=== PATIENT | male | born 2000 | race African-American/Black ===

== ENCOUNTER 2022-01-10 20:05 | Emergency (ER) | payer OTHER ==
[~2022-01-10] VITALS: Ht 175.3 cm; Wt 79.4 kg
[~2022-01-10 20:05] MED LIST: ALBU17AE3; FLUT16SP22 NS; HYDR-3583 PO; HYDR-707 PO; IBP800T PO; MONT5TAB11 PO; PRM25T PO
[2022-01-10 20:20] VITALS: BP 136/79
--- NOTE | 2022-01-10 20:59 | ED Lower Extremity ---
General Chief Complaint: Lower Extremity Stated Complaint: LEFT ANKLE INJURY Nursing Triage Note: PT AMBULATE TO ROOM FT2 WITH C/O LEFT ANKLE INJURY. PT STATES HE WAS PLAYING FOOTBALL AND HURT LEFT ANKLE WHILE PUNTING THE BALL. Source: patient Exam Limitations: no limitations (PORTILLO ALANIZ) History of Present Illness Date Seen by Provider: Jan 10, 2022 Time Seen by Provider: 20:50 Initial Comments Mr. Campos is a 21 y/o male who presents with a left ankle injury. 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 Patient was tackled which caused an eversion injury to the left ankle. He was evaluated by sports medicine at the time of the injury. Patient states the pain is located around his medial left ankle, on the dorsal surface of his left foot, and the lateral aspect of his left lower leg. Patient states his range of motion and sensation of his left lower extremity is intact and is able to walk without assistance. Patient is scheduled to see Dr. Williamson tomorrow but decided to come to the ED this evening for evaluation due to worsening discomfort. Onset: this afternoon Severity: mild Pain/Injury Location: left ankle Method of Injury: sports injury Modifying Factors: Improves With Movement (worsens pain) (PORTILLO ALANIZ) Allergies and Home Medications Allergies Coded Allergies: NKANo Known Allergies (Unverified Allergy, Mild, 05/04/09) Patient Home Medication List Home Medication List Reviewed: Yes (CYRUS ABRAHAM MD) Fluticasone Propionate (Flonase Nasal Ada) 16 Gm Naspr, 2 SPRAYS NS PRN PRN for ALLERGIES, (Reported) Entered as Reported by: SALIMA CONTI on 02/17/14 0740 Review of Systems Constitutional: no symptoms reported EENTM: no symptoms reported Respiratory: no symptoms reported Cardiovascular: no symptoms reported Gastrointestinal: no symptoms reported Genitourinary: no symptoms reported Musculoskeletal: see HPI Skin: no symptoms reported Psychiatric/Neurological: No Symptoms Reported (CYRUS ABRAHAM MD) Past Kdxluam-Gfwieo-Ixtckd Hx Patient Social History Tobacco Use?: No Smoking Status: Never a Smoker Smokeless Tobacco Frequency: Never a User Use of E-Cig and/or Vaping dev: No Use of E-Cig and/or Vaping [place]: Never a User Substance use?: No Alcohol Use?: No Pt feels they are or have been: No (PORTILLO ALANIZ) Immunizations Up To Date PED Vaccines UTD: Yes (PORTILLO ALANIZ) Seasonal Allergies Seasonal Allergies: Yes (PORTILLO ALANIZ) Past Medical History Orthopedic Asthma (PORTILLO ALANIZ) Physical Exam Vital Signs Vital Signs - First Documented 01/10/22 20:20 Temp 36.7 Pulse 83 Resp 16 B/P (MAP) 136/79 (98) O2 Delivery Room Air (CYRUS ABRAHAM MD) Vital Signs Capillary Refill : Less Than 3 Seconds (PORTILLO ALANIZ) Height, Weight, BMI Height: 5'9" Weight: 160lbs. oz. 72.576112sx; 25.00 BMI Method:Stated General Appearance: WD/WN, no apparent distress Ankles: left ankle pain (moderate pain with palpation of medial malleolus, mild pain with palpation of dorsal surface of foot), left ankle soft tissue tenderness, left ankle swelling Feet: left foot pain (mild pain with palpation of dorsal surface of foot), left foot soft tissue tenderness, left foot swelling Neurologic/Tendon: normal sensation, normal motor functions, responds to pain Neurologic/Psychiatric: alert, normal mood/affect Skin: normal color, warm/dry Lymphatic: no adenopathy Exam performed by Dr. Abraham and dictated to me. (PORTILLO ALANIZ) Progress/Results/Core Measures Results/Orders My Orders Orders - CYRUS ABRAHAM MD Ankle, Left, 3 Views (01/10/22 20:54) (CYRUS ABRAHAM MD) Vital Signs/I&O 01/10/22 20:20 Temp 36.7 Pulse 83 Resp 16 B/P (MAP) 136/79 (98) O2 Delivery Room Air (CYRUS ABRAHAM MD) Blood Pressure Mean: 98 Diagnostic Imaging Diagonstic Imaging: Xray Plain Films/CT/US/NM/MRI: ankle Comments NAME: ANT CAMPOS MED REC#: [id number] PT STATUS: REG ER : 2000 PHYSICIAN: CYRUS ABRAHAM MD ADMIT DATE: 01/10/22/ER Draft Date of Exam:01/10/22 ANKLE, LEFT, 3 VIEWS EXAM: Ankle, left, 3 views. INDICATION: Left ankle pain. COMPARISON: None. FINDINGS: No fracture or malalignment. Soft tissue shadows are unremarkable. IMPRESSION: Negative left ankle radiographs. Dictated on workstation # [id number] Dict: 01/10/222104 Trans: 01/10/222109 [facility] [id number] Interpreted by: EMELIA MCCULLOUGH MD Electronically signed by: (PORTILLO ALANIZ) Departure Impression Primary Impression: Left ankle sprain Qualified Codes: S93.402A - Sprain of unspecified ligament of left ankle, initial encounter Disposition: HOME, SELF-CARE Condition: Stable Departure-Patient Inst. Decision time for Depature: 21:48 (CYRUS ABRAHAM MD) Referrals: NO,LOCAL PHYSICIAN (PCP) Primary Care Physician ANY WILLIAMSON MD Patient Instructions: Ankle Sprain ED Add. Discharge Instructions: Use crutches if needed for ambulation. You may carefully ambulate as pain allows. Use a firm Velcro or lace ankle brace when active to prevent reinjury as your ankle heals. Alternatively, you may use taping at the discretion of Dr. Williamson and your dog trainer. Gradually increase level of activity as pain allows. Work with your dog trainer regarding graduated return to practice and competition. Follow-up with Dr. Williamson at least once for official orthopedic evaluation. Use ibuprofen up to 600 mg every 6 hours as needed for primary pain control. Add Tylenol (acetaminophen) up to 1000 mg every 6 hours as needed for added pain control. Elevation, 20-minute intervals of icing, compression, and rest can be used to help alleviate pain and swelling as well. Call with questions or concerns. Return to care if you have worsening symptoms despite following these instructions. All discharge instructions reviewed with patient and/or family. Voiced understanding. Copy Copies To 1: ANY WILLIAMSON MD, MIKAELA Jan 10, 2022 20:59 CYRUS ABRAHAM MD Jan 10, 2022 21:50
--- NOTE | 2022-01-10 21:10 | Diagnostic Imaging Report ---
EXAM: Ankle, left, 3 views. INDICATION: Left ankle pain. COMPARISON: None. FINDINGS: No fracture or malalignment. Soft tissue shadows are unremarkable. IMPRESSION: Negative left ankle radiographs. Dictated by: Dictated on workstation # [id number]
== END 2022-01-10 21:55 | disposition home or self-care (01) ==
LOC: EDUNIT# 20:05 → ER 20:07
DX: S93.402A Sprain of unspecified ligament of left ankle, initial encounter (principal); Z28.310 Unvaccinated for COVID-19; W21.01XA Struck by football, initial encounter; Y93.61 Activity, american tackle football
CPT/HCPCS: 73610